=== PATIENT | female | born 1950 ===

== ENCOUNTER 2017-12-16 11:59 | Inpatient (IN) ==
[2017-12-16 16:41] LABS: Calcium 7.7 MG/DL (8.5-10.1); Osmolality,Calculated 290.3 MOS/KG (273-304); Potassium 4.1 MMOL/L (3.5-5.1)
[2017-12-16 17:05] LABS: Basophils % 0.2 % (0.0-0.8); Eosinophils # 0.1 10*3/uL (0.0-0.87); Hematocrit 30.2 VOL% (35.7-47.0); Hemoglobin 9.5 GM/DL (12.0-16.0); Lymphocytes % 37.2 % (21.3-54.2); Mean Corpuscular HGB Conc 31.5 GM/DL (32-36); Mean Corpuscular Hemoglobin 29 PG (27-34); Mean Corpuscular Volume 92.4 FL (87-102); Monocytes # 0.4 10*3/uL (0.11-0.8); Monocytes % 6.6 % (1.7-12.7); Neutrophils # 2.9 10*3/uL (1.4-7.4); Platelet Count 98 T/CUMM (130-400); Red Blood Count 3.27 MC/CUMM (3.8-5.5); Red Cell Distribution Width 16.9 % (9.3-17.3); White Blood Count 5.5 T/CUMM (4-12)
[2017-12-16 17:25] LABS: Platelet Estimate Decreased
[2017-12-16 23:01] LABS: Hematocrit 28.3 VOL% (35.7-47.0); Hemoglobin 9.2 GM/DL (12.0-16.0)
[2017-12-17 04:42] LABS: Basophils % 0.4 % (0.0-0.8); Eosinophils # 0.4 10*3/uL (0.0-0.87); Eosinophils % 8.1 % (0.00-10.9); Hematocrit 27.3 VOL% (35.7-47.0); Hematocrit 27.9 VOL% (35.7-47.0); Hemoglobin 8.9 GM/DL (12.0-16.0); Hemoglobin 9.1 GM/DL (12.0-16.0); Immature Granulocytes % 0.2 %; Immature Granulocytes Absolute 0.01 #; Lymphocytes # 1.8 10*3/uL (1.4-4.0); Lymphocytes % 38.8 % (21.3-54.2); Mean Corpuscular HGB Conc 31.9 GM/DL (32-36); Mean Corpuscular Hemoglobin 29 PG (27-34); Mean Corpuscular Volume 90.9 FL (87-102); Mean Platelet Volume 12.2 FL (9.6-12.0); Monocytes # 0.3 10*3/uL (0.11-0.8); Neutrophils # 2.2 10*3/uL (1.4-7.4); Neutrophils % 45.5 % (38.7-73.9); Platelet Count 87 T/CUMM (130-400); Red Blood Count 3.07 MC/CUMM (3.8-5.5); Red Cell Distribution Width 16.7 % (9.3-17.3); White Blood Count 4.7 T/CUMM (4-12)
[2017-12-17 05:06] LABS: Calcium 7.9 MG/DL (8.5-10.1); Potassium 3.8 MMOL/L (3.5-5.1)
[2017-12-17 05:08] LABS: Hypochromasia 1+; Ovalocytes Slight; Platelet Estimate Decreased
[2017-12-17 07:34] LABS: Alanine Aminotransferase 11 U/L (13-56); Albumin 1.7 G/DL (3.4-5.0); Alkaline Phosphatase 77 U/L (45-117); Aspartate Amino Transferase 27 U/L (0-37); Bilirubin,Indirect 0.3 MG/DL (0.0-1.0); Bilirubin,Total < 0.39 MG/DL (0.2-1.0); Total Protein 5.9 G/DL (6.4-8.3)
[2017-12-18 04:28] LABS: Basophils % 0.4 % (0.0-0.8); Eosinophils # 0.6 10*3/uL (0.0-0.87); Eosinophils % 12.5 % (0.00-10.9); Hematocrit 28.9 VOL% (35.7-47.0); Hemoglobin 9.1 GM/DL (12.0-16.0); Immature Granulocytes % 0.4 %; Immature Granulocytes Absolute 0.02 #; Lymphocytes # 2.2 10*3/uL (1.4-4.0); Lymphocytes % 42.1 % (21.3-54.2); Mean Corpuscular HGB Conc 31.5 GM/DL (32-36); Mean Corpuscular Hemoglobin 28 PG (27-34); Mean Corpuscular Volume 89.8 FL (87-102); Mean Platelet Volume 12.5 FL (9.6-12.0); Monocytes # 0.4 10*3/uL (0.11-0.8); Monocytes % 7.2 % (1.7-12.7); Neutrophils # 1.9 10*3/uL (1.4-7.4); Neutrophils % 37.4 % (38.7-73.9); Platelet Count 100 T/CUMM (130-400); Red Blood Count 3.22 MC/CUMM (3.8-5.5); White Blood Count 5.1 T/CUMM (4-12)
[2017-12-18 05:00] LABS: Eosinophils 10 % (0-10); Hypochromasia 1+; Lymphocytes 38 % (20-55); Ovalocytes Slight; Platelet Estimate Decreased; Segmented Neutrophils 44 % (50-85); Total Cells Counted 100
[2017-12-18 06:59] LABS: Calcium 7.6 MG/DL (8.5-10.1); Osmolality,Calculated 295.1 MOS/KG (273-304); Potassium 4.2 MMOL/L (3.5-5.1)
[2017-12-18 11:41] VITALS: BP 150/68
== END 2017-12-18 14:46 | disposition home or self-care (01) | DRG 378 ==
LOC: SUATTDRO 15:07 → N.TELEN 15:07
PROVIDERS: ADMIT Hospitalist; ATTEND Emergency Medicine

== ENCOUNTER 2018-04-28 02:06 | Inpatient (IN) ==
[2018-04-28] MEDS ORDERED: ALBUTEROL 2.5 MG/3 ML NEB RESP TX PRN ×2 (04:06→04:12)
[2018-04-28] MEDS ORDERED: DEXTROSE 50% 25 GM/50 ML VIAL IV PRN (04:12)
[2018-04-28] MEDS ORDERED: ONDANSETRON 4 MG/2 ML VIAL IV PRN (04:12)
[2018-04-28] MEDS ORDERED: GLUCAGON 1 MG VIAL IM PRN (04:12)
[2018-04-28] MEDS ORDERED: DOCUSATE SODIUM 100 MG CAPSULE PO PRN (04:12)
[2018-04-28] MEDS ORDERED: SODIUM CHLORIDE 0.9% 1,000 ML IV SCH (04:30)
[2018-04-28] MEDS ORDERED: NOREPINEPHRINE 8 MG in SODIUM CHLORIDE 0.9% 242 ML IV SCH (04:30)
[2018-04-28] MEDS ORDERED: PHENYLEPHRINE DRIP 40 MG/250 ML PREMIX IV ONE (04:45)
[2018-04-28] MEDS ORDERED: LEVOFLOXACIN INJ 750 MG in PREMIX 1 EACH IV SCH (05:00)
[2018-04-28] MEDS ORDERED: VANCOMYCIN INJ 1,000 MG in SODIUM CHLORIDE 0.9% 250 ML IV ONE (05:00)
[2018-04-28] MEDS ORDERED: HYDROCORTISONE 100 MG VIAL IV SCH (05:00)
[2018-04-28 05:33] LABS: ABG Base Excess -14.1 MMOL/L (-2.5-2.5); ABG HCO3 13.8 MMOL/L (20-26); ABG PCO2 33.3 MM HG (35-48); ABG PO2 60.2 MM HG (80-95); ABG TCO2 11.6 MMOL/L (23-27); Allen Test Positive
[2018-04-28 05:41] LABS: INR 1.3; PT Patient Result 13.6 SECS
[2018-04-28 05:48] LABS: Partial Thromboplastin Time 42.9 SECS (0-40)
[2018-04-28] MEDS ORDERED: PHENYLEPHRINE DRIP 40 MG/250 ML PREMIX IV PRN (05:48)
[2018-04-28 05:54] LABS: Basophils % 0.1 % (0.0-0.8); Hematocrit 51.9 VOL% (35.7-47.0); Hemoglobin 15.6 GM/DL (12.0-16.0); Immature Granulocytes % 0.3 %; Immature Granulocytes Absolute 0.05 #; Lymphocytes # 1.3 10*3/uL (1.4-4.0); Lymphocytes % 8.6 % (21.3-54.2); Mean Corpuscular HGB Conc 30.1 GM/DL (32-36); Mean Corpuscular Hemoglobin 28 PG (27-34); Mean Corpuscular Volume 91.4 FL (87-102); Mean Platelet Volume 13.9 FL (9.6-12.0); Monocytes # 0.4 10*3/uL (0.11-0.8); Monocytes % 2.4 % (1.7-12.7); NRBC # 0.09 10*3/uL; Neutrophils # 13.6 10*3/uL (1.4-7.4); Neutrophils % 88.6 % (38.7-73.9); Platelet Count 132 T/CUMM (130-400); Red Blood Count 5.68 MC/CUMM (3.8-5.5); Red Cell Distribution Width 15.3 % (9.3-17.3); White Blood Count 15.4 T/CUMM (4-12)
[2018-04-28 05:56] LABS: Lactic Acid 2.6 MMOL/L (0.4-2.0)
[2018-04-28 06:07] LABS: Albumin 1.1 G/DL (3.4-5.0); Bilirubin,Total 0.6 MG/DL (0.2-1.0); Calcium 6.9 MG/DL (8.5-10.1); Total Protein 5.5 G/DL (6.4-8.3)
[2018-04-28 06:08] LABS: Troponin I 0.072 NG/ML (0.00-0.045)
[2018-04-28 06:58] LABS: Band Neutrophils 17 % (0-10); Lymphocytes 4 % (20-55); Platelet Estimate Adequate; Segmented Neutrophils 76 % (50-85); Total Cells Counted 100
[2018-04-28 06:59] LABS: Anisocytosis Slight; Poikilocytosis 1+
[2018-04-28] MEDS ORDERED: ALBUTEROL/IPRATROPIUM 3 ML NEB RESP TX SCH (07:00)
[2018-04-28] MEDS ORDERED: INSULIN LISPRO 100 UNIT/ML SUBCUT SCH (07:30)
[2018-04-28 07:59] LABS: Amorphous Crystals,Urine Few /HPF (Few); Apearance,Urine CLOUDY (Clear); Bacteria,Urine Many /HPF (Few); Bilirubin,Urine Negative (Negative); Blood, Urine Large mg/dL (Negative); Glucose,Urine (UA) 50 mg/dL (Negative); Ketones,Urine Negative (Negative); Mucus,Urine Occasional /LPF (Occasional); Nitrite,Urine Negative (Negative); Protein,Urine 100 MG/DL; RBC,Urine 54 /HPF (0-4); Squamous Epithelial Cell,Urine Occasional /HPF (0-10); Urine Color Amber (Yellow); Urine Specific Gravity 1.014 (1.001-1.035); Urine Urobilinogen < 2.0 EU/DL (0.2-1.0); WBC,Urine 44 /HPF (0-6)
[2018-04-28] MEDS ORDERED: AZTREONAM 2,000 MG in SODIUM CHLORIDE 0.9% 100 ML IV SCH (08:00)
[2018-04-28] MEDS ORDERED: PANTOPRAZOLE 40 MG VIAL IV SCH (09:00)
[2018-04-28] MEDS ORDERED: ENOXAPARIN 30 MG/0.3 ML SYRINGE SUBCUT SCH (09:00)
[2018-04-28] MEDS ORDERED: PERMETHRIN 5% CREAM 60 GM TUBE TOP ONE (09:00)
[2018-04-30] MEDS ORDERED: LEVOFLOXACIN INJ 750 MG in PREMIX 1 EACH IV SCH
[2018-04-30] MEDS ORDERED: PNEUMOCOCCAL VACCINE (13 VALENT) 0.5 ML SYRINGE IM ONE (09:00)
== END 2018-04-28 06:08 | disposition expired | DRG 871 ==
LOC: N.CC 03:53 → SUATTDRO 03:53
PROVIDERS: ADMIT Internal Medicine; ATTEND Internal Medicine